=== PATIENT | male | born 1975 | race Caucasian/White ===

== ENCOUNTER 2023-09-24 09:16 | Outpatient (AMB) | payer OTHER, SELFPAY ==
--- NOTE | 2023-09-24 10:04 | MHC.OFFWIV ---
Intake Vital Signs 09/24/23 10:05 09/24/23 10:53 Height 5 ft 6 in Weight 194 lb BMI 31.3 BP 100/46 L 104/60 Blood Pressure Location Rt brachial Lt brachial Position Sitting Sitting Pulse 67 Pulse Source Pulse Oximeter Temp 100.9 F H Temp Source Temporal Artery Scan Pulse Oximetry (%) 96 Oxygen Delivery Method Room Air Intake Visit Reasons: [place] Chest Congestion, Headache, (Masked) Intake Note: pt is here for c.o chest congestion, headache, since yesterday Patient Tobacco Use Status: Never used Tobacco Allergies No Known Allergies Allergy (Verified 09/24/23 10:05) Do you need a note to return to daycare/school/sports/work: Yes HPI HPI Comments History of Present Illness Details Patient is a 48-year-old male in today for a sick visit. He reports that for the past day he has been experiencing headache, fever, cough, sore throat, and a burning in his chest when he coughs. Patient has a past medical history significant for AFib. He has not taken any medication for symptom relief. He states that he has been around several people at work that have been sick. Denies dizziness, nausea, vomiting, chest pain, or shortness of breath. Denies any tingling or numbness. Patient's head is normocephalic, TMs are intact visible and pearly guerra. Patient has frontal sinus tenderness. Nasal congestion. Erythema and cobblestoning of the pharynx. No lymphadenopathy. Patient has full range of motion of his neck with extension flexion and rotation. Heart sounds of normal rate and rhythm S1-S2 with no rubs, gallops, or murmurs. Patient's breath sounds are clear bilaterally throughout. Patient likely has upper respiratory infection. This is unlikely to be epiglottitis, acute respiratory distress, or an atypical presentation of coronary syndrome. Will prescribe benzonatate and prednisone to be taken as prescribed. Patient has been educated on side effects of these medications and how to take them appropriately. Patient has also been educated to avoid [id number] decongestants with his past history of AFib. Patient has been educated on signs of worsening symptoms and when to report to the ER or when to report to the walk-in clinic. [facility] Patient Tobacco Use Status: Never used Tobacco Review of Systems Const All systems reviewed & are unremarkable except as noted in HPI and below Reports headache(s) Eyes Denies change in vision and Denies eye discharge ENT Reports as per HPI, Denies vertigo, Denies dizziness and Reports headache(s) Card Denies chest pain, Denies syncope and Denies dyspnea Resp Reports cough, Reports pain with cough and Denies dyspnea GI Denies diarrhea, Denies nausea and Denies vomiting Musc Reports myalgias Neuro Denies confusion, Denies vertigo, Denies dizziness, Denies syncope and Reports headache(s) Psych Denies confusion Physical Exam Vital Signs: Last Vital Signs Temp 100.9 F H 09/24/23 10:05 Pulse 67 09/24/23 10:05 BP 100/46 L 09/24/23 10:05 Pulse Ox 96 09/24/23 10:05 Oxygen Delivery Method Room Air 09/24/23 10:05 BMI result Body Mass Index 31.3 Vital signs have been reviewed. Patient had blood pressure recheck new result is 104/60. Vital signs are stable. Const General: cooperative and no acute distress; No confusion Orientation/consciousness: patient oriented x3 and No confusion Limitations: no limitations HEENT Head: Yes normocephalic Ears: TM's normal bilaterally General nose exam: Normal external nose present and Normal septum present Face and sinus: Yes sinus tenderness Mouth: Normal oral and palatal mucosa present Teeth and gingiva: dentition normal Throat: Yes cobblestoning Eyes General: appearance normal, both eyes and all related structures Pupils: Equal, round and reactive pupils present Neck Neck: Yes normal visual inspection, Yes full ROM and Yes no lymphadenopathy Resp Auscultation: clear to auscultation bilaterally Cardio Rate: regular rate Rhythm: regular rhythm Heart sounds: S1 normal heart sound present and S2 normal heart sound present Neuro General: patient oriented x3 and No confusion Cranial nerves: Yes CN's II-XII intact bilaterally and Yes Equal, round and reactive pupils present Cognition (Neuro): normal cognition Results Reviewed Results Reviewed: Will call patient with upper respiratory swab results. Assessment & Plan Assessment & Plan (1) Upper respiratory infection: Code(s): J06.9 - Acute upper respiratory infection, unspecified Qualifiers: URI type: unspecified URI Qualified Code(s): J06.9 - Acute upper respiratory infection, unspecified Plan: patient will be given benzonatate and prednisone to assist with cough relief. Patient has been educated on the side effects of these medications and how to take them properly. Patient has also been instructed to drink plenty of fluids and stay hydrated. He has been educated that with his history of AFib to avoid [id number] decongestants, and to read labels carefully. He should take Tylenol and Motrin for symptom relief. Patient has been educated on signs of worsening symptoms of when to return to the walk-in or when to report to the emergency room. Patient states that he understands and is agreeable to this plan. He has been advised to follow-up with his PCP. Orders: Orders SARS-CoV2/FLU/RSV Today J06.9 - Acute upper respiratory infection, unspecified Patient Instructions: Will get back to patient was walk results Coding Level of Care Code New Pt Level 3 (17635) Diagnoses Upper respiratory tract infection, unspecified type J06.9 URI type: unspecified URI Time Spent (min) 15
[2023-09-24 10:05] VITALS: BP 100/46; PULSE 67; TEMP 38.3; O2SAT 96; BMI 31.3
[2023-09-24 10:53] VITALS: BP 104/60
== END 2023-09-24 11:36 | disposition home or self-care (01) ==
PROVIDERS: PCP Internal Medicine; Visit Provider Nurse Practitioner Primary Care
DX: J06.9 Acute upper respiratory infection, unspecified (principal)
CPT/HCPCS: 99203

== ENCOUNTER 2023-09-24 13:54 | Outpatient (REF) | payer OTHER, SELFPAY ==
[2023-09-24 14:37] LABS: Influenza A PCR NEGATIVE (Negative); Influenza B PCR NEGATIVE (Negative); Resp Syncy Virus RNA Qual PCR NEGATIVE (Negative); SARS COV2 PCR INHOUSE POSITIVE (Negative)
== END 2023-09-24 13:55 | disposition home or self-care (01) ==
LOC: HO.LNP 13:54
PROVIDERS: Visit Provider Nurse Practitioner Primary Care
DX: Z11.52 Encounter for screening for COVID-19 (principal); J06.9 Acute upper respiratory infection, unspecified
CPT/HCPCS: 0241U